=== PATIENT | male | born 1960 | race Hispanic/Latino ===

== ENCOUNTER 2017-01-03 15:44 | Emergency (ER) | payer MEDICAID, OTHER ==
--- NOTE | 2017-01-03 15:49 | ED PDOC ---
Arrival/HPI - General Time Seen by Provider: 01/03/17 15:47 Historian: Patient - History of Present Illness Narrative History of Present Illness (Text): 01/03/17 15:49 This 56 yo male with pmh right inguinal hernia, colitis presents to this ED c/o epigastric pain x 2 weeks. Patient stated symptoms has worsen last night. He noted "mucus" with tinge blood. Patient denies vomiting, sob, cp, rah, recent travel, sick contact, fever, or dizziness. Time/Duration: Other (see hpi) Context: Home Past Medical History - Provider Review Nursing Documentation Reviewed: Yes - Infectious Disease Hx of Infectious Diseases: None - Tetanus Immunization Tetanus Immunization: Unknown - Cardiac Hx Cardiac Disorders: No - Pulmonary Hx Respiratory Disorders: Yes Hx Asthma: Yes - Neurological Hx Neurological Disorder: No - HEENT Hx HEENT Disorder: No - Renal Hx Renal Disorder: No - Endocrine/Metabolic Hx Endocrine Disorders: No - Hematological/Oncological Hx Blood Disorders: No - Integumentary Hx Dermatological Disorder: No - Musculoskeletal/Rheumatological Hx Musculoskeletal Disorders: No - Gastrointestinal Hx Gastrointestinal Disorders: Yes Hx Colitis: Yes - Genitourinary/Gynecological Hx Genitourinary Disorders: No - Psychiatric Hx Psychophysiologic Disorder: Yes Hx Anxiety: Yes Hx Substance Use: No - Anesthesia Hx Anesthesia: No - Suicidal Assessment Feels Threatened In Home Enviroment: No Family/Social History - Physician Review Nursing Documentation Reviewed: Yes Family/Social History: Other (non-contributory) Smoking Status: Never Smoked Hx Alcohol Use: No Hx Substance Use: No Hx Substance Use Treatment: No Allergies/Home Meds Allergies/Adverse Reactions: Allergies acetaminophen [From Tylenol-Codeine #3] Allergy (Verified 01/03/17 15:57) NAUSEA aspirin Allergy (Verified 01/03/17 15:57) WHEEZING codeine [From Tylenol-Codeine #3] Allergy (Verified 01/03/17 15:57) NAUSEA Home Medications: Home Meds Medication Instructions Recorded Confirmed No Known Home Med 01/03/17 01/03/17 Review of Systems - Review of Systems Constitutional: Normal. absent: Fatigue, Weight Change, Fevers Eyes: Normal ENT: Normal Respiratory: Normal Cardiovascular: Normal Gastrointestinal: Abdominal Pain, Nausea. absent: Constipation, Diarrhea, Vomiting Genitourinary Male: Normal Musculoskeletal: Normal. absent: Back Pain, Neck Pain, Joint Swelling Skin: Normal. absent: Rash Neurological: Normal. absent: Headache, Dizziness, Focal Weakness, Gait Changes , Speech Changes, Facial Droop, Disequilibrium, Seizure Endocrine: Normal Hemo/Lymphatic: Normal Psychiatric: Normal Physical Exam Vital Signs Temp Pulse Resp BP Pulse Ox 01/03/17 20:56 98.0 F 78 16 126/81 99 01/03/17 16:09 98.6 F 75 18 123/69 97 Temperature: Afebrile Blood Pressure: Normal Pulse: Regular Respiratory Rate: Normal Appearance: Positive for: Well-Appearing, Non-Toxic, Comfortable Pain Distress: None Mental Status: Positive for: Alert and Oriented X 3 - Systems Exam Head: Present: Atraumatic, Normocephalic Pupils: Present: PERRL Extroacular Muscles: Present: EOMI Conjunctiva: Present: Normal Mouth: Present: Moist Mucous Membranes Neck: Present: Normal Range of Motion Respiratory/Chest: Present: Clear to Auscultation, Good Air Exchange. No: Respiratory Distress, Accessory Muscle Use, Wheezes, Rhonchi Cardiovascular: Present: Regular Rate and Rhythm, Normal S1, S2. No: Murmurs Abdomen: Present: Normal Bowel Sounds. No: Tenderness, Distention, Peritoneal Signs, Rebound, Guarding Back: Present: Normal Inspection. No: CVA Tenderness Upper Extremity: Present: Normal Inspection, Normal ROM, NORMAL PULSES, Neurovascularly Intact, Capillary Refill < 2s. No: Cyanosis, Edema Lower Extremity: Present: Normal Inspection, NORMAL PULSES, Normal ROM, Neurovascularly Intact, Capillary Refill < 2 s. No: Edema Neurological: Present: GCS=15, CN II-XII Intact, Speech Normal Skin: Present: Warm, Dry, Normal Color. No: Rashes Psychiatric: Present: Alert, Oriented x 3, Normal Insight, Normal Concentration Medical Decision Making ED Course and Treatment: 01/03/17 20:52 Leaving Against Medical Advice (AMA): This patient is choosing to leave against medical advice. The EP has personally explained to the pt that choosing to do so may result in permanent bodily harm or . The EP discussed at great length that without further evaluation and monitoring there may be unforeseen circumstances and/or deterioration causing permanent bodily harm or as a result of their choice. The pt verbalized these risks back to the physician in laymans terms. The pt is alert, oriented, and shows the mental capacity to make clear decisions regarding the pts health care at this time. The pt continues to wish to leave against medical advice. In light of the pts decision to leave AMA, follow-up has been recommended and the pt is aware of the importance of following up as instructed. The pt has been advised that they should return to the ED immediately if they change their mind at any time, or if their condition begins to change or worsen in any way. PATIENT REFUSED ANTIBIOTIC, OR ANY OTHER MEDICATION. BECAUSE HE BELIEVES IN HOLISTIC MEDICATION. Patient is aware that WBC is elevated, which may suggested an infection and antibiotic must be started immediately. He continues to refused ABX. He stated he will return to emergency if symptoms persist or worsen in 1-2 days. Patient did not want to wait for ct scan report 01/03/17 21:30 [facility] called stating patient has an acute Appendicitis. I called his home phone number multiple times but his phone is not accepting phone calls at this time. Re-evaluation Time: 20:52 Reassessment Condition: Re-examined, Improving,but remains with symptoms - Lab Interpretations Lab Results: 01/03/17 16:34 01/03/17 16:34 Lab Results 01/03/17 16:34: Sodium 142, Potassium 4.5, Chloride 104, Carbon Dioxide 26, Anion Gap 17, BUN 20, Creatinine 0.9, Est GFR ( Amer) > 60, Est GFR (Non- Af Amer) > 60, Random Glucose 91, Calcium 9.2, Total Bilirubin 1.0, AST 37, ALT 34, Alkaline Phosphatase 70, Total Protein 7.5, Albumin 4.3, Globulin 3.2, Albumin/Globulin Ratio 1.3, Lipase 46 01/03/17 16:34: PT 11.0, INR 1.02, APTT 27.2 01/03/17 16:34: WBC 15.3 H, RBC 5.25, Hgb 16.5, Hct 45.9, MCV 87.4, MCH 31.4, MCHC 35.9, RDW 12.1, Plt Count 186, MPV 9.7, Gran % 86.4 H, Lymph % (Auto) 8.5 L , [place] % (Auto) 4.7, Eos % (Auto) 0.3 L, Baso % (Auto) 0.1, Gran # 13.25 H, Lymph # 1.3, [place] # 0.7 H, Eos # 0.0, Baso # 0.02 - RAD Interpretation Radiology Orders: 01/03/17 16:20 CHEST PORTABLE [RAD] Stat 01/03/17 16:27 ABD PELVIS PO & IV CONTRAST [CT] Stat - Medication Orders Current Medication Orders: Discontinued Medications Famotidine (Pepcid) 20 mg IVP STAT STA Stop: 01/03/17 16:16 Last Admin: 01/03/17 16:45 Dose: 20 mg Sodium Chloride (Sodium Chloride 0.9%) 1,000 mls @ 1,000 mls/hr IV .Q1H STA Stop: 01/03/17 17:14 Last Admin: 01/03/17 16:45 Dose: 1,000 mls/hr Iohexol (Omnipaque 240 (50 Ml)) Confirm Administered Dose 50 ml .ROUTE .STK-MED ONE Stop: 01/03/17 17:15 Iohexol (Omnipaque 350 100 Ml) Confirm Administered Dose 350 mg .ROUTE .STK-MED ONE Stop: 01/03/17 19:01 Ondansetron HCl (Zofran Inj) 4 mg IVP STAT STA Stop: 01/03/17 16:18 Last Admin: 01/03/17 16:45 Dose: 4 mg Disposition/Present on Arrival - Present on Arrival Any Indicators Present on Arrival: No History of DVT/PE: No History of Uncontrolled Diabetes: No Urinary Catheter: No History Surgical Site Infection Following: None - Disposition Have Diagnosis and Disposition been Completed?: Yes Diagnosis: Abdominal pain Disposition: AGAINST MEDICAL ADVICE Disposition Time: 20:53 Condition: UNKNOWN Referrals: PCP,NO [Primary Care Provider] - Follow up with primary Forms: [employer] (Setswana)
[2017-01-03 15:57] VITALS: BMI 24.5
[2017-01-03] MEDS ORDERED: Sodium Chloride 0.9% 1,000 ML IV STA (16:15)
[2017-01-03 16:49] LABS: BASO # 0.02 K/mm3 (0.0-2.0); BASO % 0.1 % (0.0-3.0); EOS % 0.3 % (1.5-5.0); GRAN # 13.25 (1.4-6.5); GRAN % 86.4 % (50.0-68.0); HEMATOCRIT 45.9 % (42.0-52.0); LYMPH # 1.3 (1.2-3.4); LYMPH % 8.5 % (22.0-35.0); MEAN CELL VOLUME 87.4 fl (80.0-105.0); MEAN CORPUSCULAR HEMOGLOBIN 31.4 pg (25.0-35.0); MEAN CORPUSCULAR HGB CONC 35.9 g/dl (31.0-37.0); MEAN PLATELET VOLUME 9.7 fl (7.0-11.0); MONO # 0.7 (0.1-0.6); MONO % 4.7 % (1.0-6.0); RED CELL DISTRIBUTION WIDTH 12.1 % (11.5-14.5); WHITE BLOOD COUNT 15.3 10^3/ul (4.5-11.0)
[2017-01-03 17:01] LABS: INR 1.02 (0.93-1.08); PARTIAL THROMBOPLASTIN TIME 27.2 Seconds (23.7-30.8)
[2017-01-03 17:02] LABS: ALB/GLOB RATIO 1.3 (1.1-1.8); ALKALINE PHOSPHATASE 70 U/L (38-126); ALT/SGPT 34 U/L (7-56); AST/SGOT 37 U/L (17-59); BLOOD UREA NITROGEN 20 mg/dL (7-21); CALCIUM 9.2 mg/dL (8.4-10.5); CARBON DIOXIDE 26 mmol/L (21-33); CHLORIDE 104 mmol/L (98-107); GFR AFRICAN-AMERICAN > 60; GLUCOSE,RANDOM 91 mg/dL (70-110); LIPASE 46 U/L (23-300); POTASSIUM 4.5 mmol/L (3.6-5.0); SODIUM 142 mmol/L (132-148); TOTAL PROTEIN 7.5 g/dL (5.8-8.3)
--- NOTE | 2017-01-03 17:13 | RAD ---
HISTORY: epigastric pain r/o free air . Technique: Single view portable semi erect @ 16:35. COMPARISON: 02/03/2015. FINDINGS: LUNGS: No active pulmonary disease. PLEURA: No significant pleural effusion identified, no pneumothorax apparent. CARDIOVASCULAR: Normal. OSSEOUS STRUCTURES: No significant abnormalities. VISUALIZED UPPER ABDOMEN: Normal. OTHER FINDINGS: None. IMPRESSION: No active disease. No significant interval change compared to the prior examination(s). Concordant results with the preliminary interpretation rendered by the emergency department physician procedure.
[2017-01-03] MEDS ORDERED: Iohexol 240 (50 ml) ONE (17:14)
[2017-01-03] MEDS ORDERED: Iohexol 350 MG/100 ML VIAL ONE (19:00)
[2017-01-03 20:57] VITALS: BP 126/81; PULSE 78; RESP 16; TEMP 98; O2SAT 99
--- NOTE | 2017-01-03 21:07 | CT ---
EXAM: CT Abdomen and Pelvis With Intravenous Contrast CLINICAL HISTORY: 56 years old, male; Pain; Abdominal pain; Epigastric; Additional info: Epigastric pain TECHNIQUE: Axial computed tomography images of the abdomen and pelvis with intravenous contrast. All CT scans at this facility use one or more dose reduction techniques, viz.: automated exposure control; ma/kV adjustment per patient size (including targeted exams where dose is matched to indication; i.e. head); or iterative reconstruction technique. Coronal and sagittal reformatted images were created and reviewed. CONTRAST: 93 mL of omni 350 administered intravenously. COMPARISON: No relevant prior studies available. FINDINGS: Lower thorax: Few pulmonary nodules, up to 0.7 cm. ABDOMEN: Liver: Too small to characterize lesion. Gallbladder and bile ducts: No calcified stones. No ductal dilation. Pancreas: No ductal dilation. No mass. Spleen: No splenomegaly. Adrenals: No mass. Kidneys and ureters: RIGHT renal cyst. Few too small to characterize lesions within RIGHT kidney. No hydronephrosis. Stomach and bowel: Mild mural thickening of rectum/distal sigmoid colon with submucosal fat deposition. Increase in perirectal fat. Mild mural thickening of base of cecum. No obstruction. Appendix: Enlarged appendix, measuring up to 1.0 cm in diameter. Mild stranding about appendix. PELVIS: Bladder: Unremarkable. Reproductive: Enlarged prostate gland. ABDOMEN and PELVIS: Intraperitoneal space: No significant fluid collection. No free air. Bones/joints: No acute fracture. Soft tissues: Unremarkable. Vasculature: Unremarkable. No aneurysm. Lymph nodes: Several subcentimeter short axis lymph nodes about RIGHT colon. IMPRESSION: 1. Findings compatible with acute appendicitis. 2. Thickening of base of cecum compatible with acute focal colitis. 3. Thickening of rectum/distal sigmoid colon with fat deposition compatible with chronic colitis. 4. Pulmonary nodules. For low-risk patients recommend follow-up chest CT at 3-6 months. If unchanged consider an additional follow-up CT at 18-24 months. For high-risk patients (smoking history or other known risk factors) initial follow-up chest CT at 3-6 months and if unchanged, 18-24 months. 5. Incidental/non-acute findings are described above.
[2017-01-03 22:40] LABS: PH,URINE 8.5 (4.7-8.0); URINE APPEARANCE CLEAR (CLEAR); URINE BILIRUBIN NEGATIVE (NEGATIVE); URINE BLOOD NEGATIVE (NEGATIVE); URINE COLOR YELLOW (YELLOW); URINE GLUCOSE (UA) NEGATIVE (NEGATIVE); URINE KETONE >=80 mg/dL (NEGATIVE); URINE LEUKOCYTE ESTERASE NEGATIVE Leu/uL (NEGATIVE); URINE PROTEIN TRACE mg/dL (<30 mg/dL); URINE UROBILINOGEN 0.2 E.U./dL (<1 E.U./dL)
[2017-01-03 22:49] LABS: URINE BACTERIA FEW (NEG); URINE EPITHELIAL CELLS 0 - 2 /hpf (0-5); URINE WBC 0 - 2 /hpf (0-6)
--- NOTE | 2017-01-04 16:31 | CARD ---
APPROVED REPORT EKG Measurement Heart [id number] <Conclusion> Normal sinus rhythm Normal ECG
== END 2017-01-03 20:57 | disposition left against medical advice (07) ==
LOC: ED 15:44
DX: R10.13 Epigastric pain (principal)
CPT/HCPCS: 71010; 74177; 80053; 81001; 83690; 85025; 85610; 85730; 93005; 96374; 96375; 99285; J2405; J7040; Q9966; Q9967

== ENCOUNTER 2017-01-04 01:51 | Inpatient (IN) | payer OTHER ==
[2017-01-04 01:53] VITALS: BMI 24.5
--- NOTE | 2017-01-04 02:01 | ED PDOC ---
Arrival/HPI - General Historian: Patient - History of Present Illness Time/Duration: Other (see hpi) Quality: Aching Context: Home - General Time Seen by Provider: 01/04/17 01:57 - History of Present Illness Narrative History of Present Illness (Text): 01/04/17 01:58 This 56 yo male with pmh right inguinal hernia, colitis, presents to this ED c/ o worsening of abdominal pain. Patient stated he was seen in this ED early today, but he needed to take care his mother, so he signed AMA, refused ABX, and left ED. Abdominal pain has worsen, so he returned to ED. Denies sob, cp, fever, or urinary symptoms. (Eh Moon) Past Medical History - Provider Review Nursing Documentation Reviewed: Yes - Infectious Disease Hx of Infectious Diseases: None - Tetanus Immunization Tetanus Immunization: Unknown - Cardiac Hx Cardiac Disorders: No - Pulmonary Hx Respiratory Disorders: Yes Hx Asthma: Yes - Neurological Hx Neurological Disorder: No - HEENT Hx HEENT Disorder: No - Renal Hx Renal Disorder: No - Endocrine/Metabolic Hx Endocrine Disorders: No - Hematological/Oncological Hx Blood Disorders: No - Integumentary Hx Dermatological Disorder: No - Musculoskeletal/Rheumatological Hx Musculoskeletal Disorders: No - Gastrointestinal Hx Gastrointestinal Disorders: Yes Hx Colitis: Yes - Genitourinary/Gynecological Hx Genitourinary Disorders: No - Psychiatric Hx Psychophysiologic Disorder: Yes Hx Anxiety: Yes Hx Substance Use: No - Anesthesia Hx Anesthesia: No - Suicidal Assessment Feels Threatened In Home Enviroment: No Family/Social History - Physician Review Nursing Documentation Reviewed: Yes Family/Social History: Other (non-contributory) Smoking Status: Never Smoked Hx Alcohol Use: No Hx Substance Use: No Hx Substance Use Treatment: No Allergies/Home Meds Allergies/Adverse Reactions: Allergies acetaminophen [From Tylenol-Codeine #3] Allergy (Verified 01/03/17 15:57) NAUSEA aspirin Allergy (Verified 01/03/17 15:57) WHEEZING codeine [From Tylenol-Codeine #3] Allergy (Verified 01/03/17 15:57) NAUSEA Home Medications: Home Meds Medication Instructions Recorded Confirmed No Known Home Med 01/03/17 01/04/17 Review of Systems - Review of Systems Constitutional: Normal. absent: Fatigue, Weight Change, Fevers Eyes: Normal ENT: Normal Respiratory: Normal. absent: SOB, Cough, Sputum, Wheezing Cardiovascular: Normal. absent: Chest Pain, Palpitations Gastrointestinal: Abdominal Pain, Nausea. absent: Diarrhea, Vomiting Genitourinary Male: Normal Musculoskeletal: Normal. absent: Back Pain Skin: Normal. absent: Rash Neurological: Normal Endocrine: Normal Hemo/Lymphatic: Normal Psychiatric: Normal Physical Exam Temperature: Afebrile Blood Pressure: Normal Pulse: Regular Respiratory Rate: Normal Appearance: Positive for: Well-Appearing, Non-Toxic, Comfortable Pain Distress: None Mental Status: Positive for: Alert and Oriented X 3 - Systems Exam Head: Present: Atraumatic, Normocephalic Pupils: Present: PERRL Extroacular Muscles: Present: EOMI Conjunctiva: Present: Normal Mouth: Present: Moist Mucous Membranes Neck: Present: Normal Range of Motion Respiratory/Chest: Present: Clear to Auscultation, Good Air Exchange. No: Respiratory Distress, Accessory Muscle Use Cardiovascular: Present: Regular Rate and Rhythm, Normal S1, S2. No: Murmurs Abdomen: Present: Tenderness, Normal Bowel Sounds, Rebound, Guarding. No: Distention, Peritoneal Signs, Rovsing's Sign Present, Feeding Tubes, Ostomy Tubes Back: Present: Normal Inspection. No: CVA Tenderness Upper Extremity: Present: Normal Inspection. No: Cyanosis, Edema Lower Extremity: Present: Normal Inspection. No: Edema Neurological: Present: GCS=15, CN II-XII Intact, Speech Normal Skin: Present: Warm, Dry, Normal Color. No: Rashes Psychiatric: Present: Alert, Oriented x 3, Normal Insight, Normal Concentration Vital Signs Temp Pulse Resp BP Pulse Ox 01/04/17 02:09 99.7 F H 82 16 116/73 95 Medical Decision Making Re-evaluation Time: 02:18 Reassessment Condition: Re-examined, Improving,but remains with symptoms - Lab Interpretations I have reviewed the lab results: Yes Interpretation: Abnormal lab values ED Course and Treatment: 01/04/17 02:49 I was available for consultation during PA evaluation. The chart was reviewed by me, and I agree with disposition. The documented history was done by the physician quality manager. The documented procedures were done by the physician quality manager. (Mauricio Howe) 01/04/17 02:[address] Judge regarding CT scan result which demonstrates Appy. She agrees with admission under her service (Eh Moon) - RAD Interpretation Narrative RAD Interpretations (Text): 01/04/17 02:19 Formerly [facility] Division of Radiology [address] [address] Tel. no. Patient Name: JOSEPH LINDER Pt. Address: [address] [place] [address]. Rec #: [id number] [place] [address]: Eh Moon PA-C Pt Order Location: ED : 1960 Male Age: 56 Order #: [id number] Reason for exam: epigastric pain CT Scan ABD PELVIS PO IV CONTRAST Exam Date: 01/03/17 This imaging exam was performed at [facility] ADDENDUM Addendum created by Zoltan Urena MD on 01/03/2017 9:19:35 PM EDT THIS REPORT CONTAINS FINDINGS THAT MAY BE CRITICAL TO PATIENT CARE. The findings were verbally communicated via telephone conference with physician technical administrative assistant Eh Moon PA-C at 9:18 PM EDT on 01/03/2017. The findings were acknowledged and understood. Vasculature: Mild varices within upper abdomen. No aneurysm. Initial report created on 01/03/2017 9:06:56 PM EDT EXAM: CT Abdomen and Pelvis With Intravenous Contrast CLINICAL HISTORY: 56 years old, male; Pain; Abdominal pain; Epigastric; Additional info: Epigastric pain TECHNIQUE: Axial computed tomography images of the abdomen and pelvis with intravenous contrast. All CT scans at this facility use one or more dose reduction techniques, viz.: automated exposure control; ma/kV adjustment per patient size (including targeted exams where dose is matched to indication; i.e. head); or iterative reconstruction technique. Coronal and sagittal reformatted images were created and reviewed. CONTRAST: 93 mL of omni 350 administered intravenously. COMPARISON: No relevant prior studies available. FINDINGS: Lower thorax: Few pulmonary nodules, up to 0.7 cm. ABDOMEN: Liver: Too small to characterize lesion. Gallbladder and bile ducts: No calcified stones. No ductal dilation. Pancreas: No ductal dilation. No mass. Spleen: No splenomegaly. Adrenals: No mass. Kidneys and ureters: RIGHT renal cyst. Few too small to characterize lesions within RIGHT kidney. No hydronephrosis. Stomach and bowel: Mild mural thickening of rectum/distal sigmoid colon with submucosal fat deposition. Increase in perirectal fat. Mild mural thickening of base of cecum. No obstruction. Appendix: Enlarged appendix, measuring up to 1.0 cm in diameter. Mild stranding about appendix. PELVIS: Bladder: Unremarkable. Reproductive: Enlarged prostate gland. ABDOMEN and PELVIS: Intraperitoneal space: No significant fluid collection. No free air. Bones/joints: No acute fracture. Soft tissues: Unremarkable. Vasculature: Unremarkable. No aneurysm. Lymph nodes: Several subcentimeter short axis lymph nodes about RIGHT colon. IMPRESSION: 1. Findings compatible with acute appendicitis. 2. Thickening of base of cecum compatible with acute focal colitis. 3. Thickening of rectum/distal sigmoid colon with fat deposition compatible with chronic colitis. 4. Pulmonary nodules. For low-risk patients recommend follow-up chest CT at 3-6 months. If unchanged consider an additional follow-up CT at 18-24 months. For high-risk patients (smoking history or other known risk factors) initial follow-up chest CT at 3-6 months and if unchanged, 18-24 months. 5. Incidental/non-acute findings are described above. Addendum Dictated By: Zoltan Urena MD Addendum Dictated Date Time:01/03/17 Addendum Signed by:Zoltan Urena MD Addendum signed Date Time: 01/03/172118 Addendum Transcribed By: ISH Addendum Transcribed Date Time: 01/03/17 [id number] EXAM: CT Abdomen and Pelvis With Intravenous Contrast CLINICAL HISTORY: 56 years old, male; Pain; Abdominal pain; Epigastric; Additional info: Epigastric pain TECHNIQUE: Axial computed tomography images of the abdomen and pelvis with intravenous contrast. All CT scans at this facility use one or more dose reduction techniques, viz.: automated exposure control; ma/kV adjustment per patient size (including targeted exams where dose is matched to indication; i.e. head); or iterative reconstruction technique. Coronal and sagittal reformatted images were created and reviewed. CONTRAST: 93 mL of omni 350 administered intravenously. COMPARISON: No relevant prior studies available. FINDINGS: Lower thorax: Few pulmonary nodules, up to 0.7 cm. ABDOMEN: Liver: Too small to characterize lesion. Gallbladder and bile ducts: No calcified stones. No ductal dilation. Pancreas: No ductal dilation. No mass. Spleen: No splenomegaly. Adrenals: No mass. Kidneys and ureters: RIGHT renal cyst. Few too small to characterize lesions within RIGHT kidney. No hydronephrosis. Stomach and bowel: Mild mural thickening of rectum/distal sigmoid colon with submucosal fat deposition. Increase in perirectal fat. Mild mural thickening of base of cecum. No obstruction. Appendix: Enlarged appendix, measuring up to 1.0 cm in diameter. Mild stranding about appendix. PELVIS: Bladder: Unremarkable. Reproductive: Enlarged prostate gland. ABDOMEN and PELVIS: Intraperitoneal space: No significant fluid collection. No free air. Bones/joints: No acute fracture. Soft tissues: Unremarkable. Vasculature: Unremarkable. No aneurysm. Lymph nodes: Several subcentimeter short axis lymph nodes about RIGHT colon. IMPRESSION: 1. Findings compatible with acute appendicitis. 2. Thickening of base of cecum compatible with acute focal colitis. 3. Thickening of rectum/distal sigmoid colon with fat deposition compatible with chronic colitis. 4. Pulmonary nodules. For low-risk patients recommend follow-up chest CT at 3-6 months. If unchanged consider an additional follow-up CT at 18-24 months. For high-risk patients (smoking history or other known risk factors) initial follow-up chest CT at 3-6 months and if unchanged, 18-24 months. 5. Incidental/non-acute findings are described above. Dictated By: Zoltan Urena MD Dictated Date/Time: 01/03/172105 Signed By: Zoltan Urena MD Date Signed: 2105 Transcribed By: ISH Transcribe Date/Time : 01/03/172105 (Eh Moon) Radiology Orders: 01/04/17 02:08 CHEST PORTABLE [RAD] Stat - Medication Orders Current Medication Orders: Discontinued Medications Desflurane (Suprane) Confirm Administered Dose 240 ml .ROUTE .STK-MED ONE Stop: 01/04/17 11:15 Dexamethasone (Decadron Inj) Confirm Administered Dose 10 mg .ROUTE .STK-MED ONE Stop: 01/04/17 10:53 Fentanyl (Fentanyl) Confirm Administered Dose 100 mcg .ROUTE .STK-MED ONE Stop: 01/04/17 10:52 Fentanyl (Fentanyl) Confirm Administered Dose 100 mcg .ROUTE .STK-MED ONE Stop: 01/04/17 11:06 Glycopyrrolate (Robinul) Confirm Administered Dose 0.6 mg .ROUTE .STK-MED ONE Stop: 01/04/17 11:07 Hydromorphone HCl (Dilaudid) 0.5 mg IVP Q6H PRN PRN Reason: Pain, moderate (4-7) Hydromorphone HCl (Dilaudid) 1 mg IVP Q15M PRN PRN Reason: Pain, moderate (4-7) Stop: 01/04/17 15:11 Sodium Chloride (Sodium Chloride 0.9%) 1,000 mls @ 100 mls/hr IV .Q10H THEODORE Sodium Chloride (Sodium Chloride 0.9%) 1,000 mls @ 999 mls/hr IV .Q1H1M STA Stop: 01/04/17 03:17 Last Admin: 01/04/17 02:47 Dose: 999 mls/hr eMAR Start Stop Document 01/04/17 02:47 SC (Rec: 01/04/17 02:48 SC [id number]) Intravenous Solution Start Date 01/04/17 Start Time 02:48 End Date 01/04/17 End time 03:48 Total Infusion Time 60 Sodium Chloride (Sodium Chloride 0.9%) 1,000 mls @ 150 mls/hr IV .Q6H40M THEODORE Last Admin: 01/05/17 01:16 Dose: 150 mls/hr eMAR Start Stop Document 01/05/17 01:16 BN (Rec: 01/05/17 01:16 BN [id number]) Intravenous Solution Start Date 01/05/17 Start Time 01:16 Piperacillin Sod/Tazobactam Sod (Zosyn 3.375 In Ns 100ml) 100 mls @ 200 mls/hr IVPB Q6 THEODORE PRN Reason: Protocol Stop: 01/04/17 12:29 Last Admin: 01/04/17 15:24 Dose: Lactated Ringer's (Lactated Ringer's) 1,000 mls @ 75 mls/hr IV .[id number] THEODORE Stop: 01/04/17 12:12 Last Admin: 01/04/17 15:16 Dose: Metoclopramide HCl (Reglan) Confirm Administered Dose 10 mg .ROUTE .STK-MED ONE Stop: 01/04/17 10:56 Neostigmine Methylsulfate (Neostigmine Methylsulfate) Confirm Administered Dose 6 mg IV .STK-MED ONE Stop: 01/04/17 11:07 Ondansetron HCl (Zofran Inj) 4 mg IVP STAT STA Stop: 01/04/17 02:18 Last Admin: 01/04/17 02:48 Dose: 4 mg IVP Administration Document 01/04/17 02:48 SC (Rec: 01/04/17 02:48 SC [id number]) Charges for Administration # of IVP Administrations 1 Ondansetron HCl (Zofran Inj) 4 mg IVP Q4H PRN PRN Reason: Nausea/Vomiting Ondansetron HCl (Zofran Inj) Confirm Administered Dose 4 mg .ROUTE .STK-MED ONE Stop: 01/04/17 11:47 Ondansetron HCl (Zofran Inj) 4 mg IVP .STK-MED ONE Stop: 01/04/17 11:51 Last Admin: 01/04/17 11:50 Dose: 4 mg Ondansetron HCl (Zofran Inj) 4 mg IVP ONCE ONE Stop: 01/04/17 11:58 Last Admin: 01/04/17 15:23 Dose: Pantoprazole Sodium (Protonix Inj) 40 mg IVP DAILY THEODORE Last Admin: 01/05/17 10:22 Dose: 40 mg IVP Administration Document 01/05/17 10:22 (Rec: 01/05/17 10:22 [id number]) Charges for Administration # of IVP Administrations 1 Propofol (Diprivan) Confirm Administered Dose 200 mg .ROUTE .STK-MED ONE Stop: 01/04/17 09:59 Propofol (Diprivan) Confirm Administered Dose 200 mg .ROUTE .STK-MED ONE Stop: 01/04/17 10:30 Rocuronium [place] (Zemuron) Confirm Administered Dose 50 mg .ROUTE .STK-MED ONE Stop: 01/04/17 10:44 Succinylcholine Chloride (Quelicin) Confirm Administered Dose 200 mg IV .STK- MED ONE Stop: 01/04/17 09:59 Disposition/Present on Arrival - Present on Arrival Any Indicators Present on Arrival: No History of DVT/PE: No History of Uncontrolled Diabetes: No Urinary Catheter: No History Surgical Site Infection Following: None - Disposition Have Diagnosis and Disposition been Completed?: Yes Disposition Time: 02:19 Patient Plan: Admission - Disposition Diagnosis: Appendicitis Disposition: HOSPITALIZED Condition: STABLE
[2017-01-04] MEDS ORDERED: Sodium Chloride 0.9% 1,000 ML IV SCH (02:15)
[2017-01-04] MEDS ORDERED: Sodium Chloride 0.9% 1,000 ML IV STA (02:17)
--- NOTE | 2017-01-04 02:31 | CP.PCM.CON ---
History of Present Illness - History of Present Illness History of Present Illness: SURGERY CONSULT NOTE FOR DR. CARMONA Past Patient History - Infectious Disease Hx of Infectious Diseases: None - Tetanus Immunizations Tetanus Immunization: Unknown - Past Social History Smoking Status: Never Smoked - CARDIAC Hx Cardiac Disorders: No - PULMONARY Hx Respiratory Disorders: Yes Hx Asthma: Yes - NEUROLOGICAL Hx Neurological Disorder: No - HEENT Hx HEENT Problems: No - RENAL Hx Chronic Kidney Disease: No - ENDOCRINE/METABOLIC Hx Endocrine Disorders: No - HEMATOLOGICAL/ONCOLOGICAL Hx Blood Disorders: No - INTEGUMENTARY Hx Dermatological Problems: No - MUSCULOSKELETAL/RHEUMATOLOGICAL Hx Musculoskeletal Disorders: No - GASTROINTESTINAL Hx Gastrointestinal Disorders: Yes Hx Colitis: Yes - GENITOURINARY/GYNECOLOGICAL Hx Genitourinary Disorders: No - PSYCHIATRIC Hx Psychophysiologic Disorder: Yes Hx Anxiety: Yes Hx Substance Use: No - SURGICAL HISTORY Hx Surgeries: No - ANESTHESIA Hx Anesthesia: No Meds Allergies/Adverse Reactions: Allergies Allergy/AdvReac Type Severity Reaction Status Date / Time acetaminophen Allergy NAUSEA Verified 01/03/17 15:57 [From Tylenol-Codeine #3] aspirin Allergy WHEEZING Verified 01/03/17 15:57 codeine Allergy NAUSEA Verified 01/03/17 15:57 [From Tylenol-Codeine #3] - Medications Medications: Current Medications Sodium Chloride (Sodium Chloride 0.9%) 1,000 mls @ 999 mls/hr IV .Q1H1M STA Stop: 01/04/17 03:17 Ondansetron HCl (Zofran Inj) 4 mg IVP STAT STA Stop: 01/04/17 02:18 Results - Vital Signs Recent Vital Signs: Last Vital Signs Temp 99.7 F H 01/04/17 02:09 Pulse 82 01/04/17 02:09 Resp 16 01/04/17 02:09 BP 116/73 01/04/17 02:09 Pulse Ox 95 01/04/17 02:09
--- NOTE | 2017-01-04 03:24 | CP.PCM.HP ---
History of Present Illness - History of Present Illness History of Present Illness: HISTORY AND PHYSICAL FOR DR. CARMONA 56M presents to [facility] [place] with abdominal pain which has been ongoing for one day. He states he has never had this severity of pain before. Pain started in the periumbilical region and and now moved with max tenderness in the right lower quadrant. It was associated with nausea and vomiting once. He admits to subjective fevers and chills. Patient states he does not feel like eating because he feels as if he would not be able to tolerate PO diet. Patient left ER AMA last night and came back to ED at 1AM because of increase in pain. PMH: Colitis, right inguinal hernia PSH: I&D Rectal abscess? Social: denies tobacco, alcohol, illicit drug abuse Allergies: Codeine (nausea), states he does not have allergy to acetaminophen without codeine Present on Admission - Present on Admission Any Indicators Present on Admission: No Past Patient History - Infectious Disease Hx of Infectious Diseases: None - Tetanus Immunizations Tetanus Immunization: Unknown - Past Social History Smoking Status: Never Smoked - CARDIAC Hx Cardiac Disorders: No - PULMONARY Hx Respiratory Disorders: Yes Hx Asthma: Yes - NEUROLOGICAL Hx Neurological Disorder: No - HEENT Hx HEENT Problems: No - RENAL Hx Chronic Kidney Disease: No - ENDOCRINE/METABOLIC Hx Endocrine Disorders: No - HEMATOLOGICAL/ONCOLOGICAL Hx Blood Disorders: No - INTEGUMENTARY Hx Dermatological Problems: No - MUSCULOSKELETAL/RHEUMATOLOGICAL Hx Musculoskeletal Disorders: No - GASTROINTESTINAL Hx Gastrointestinal Disorders: Yes Hx Colitis: Yes - GENITOURINARY/GYNECOLOGICAL Hx Genitourinary Disorders: No - PSYCHIATRIC Hx Psychophysiologic Disorder: Yes Hx Anxiety: Yes Hx Substance Use: No - SURGICAL HISTORY Hx Surgeries: No - ANESTHESIA Hx Anesthesia: No Meds Allergies/Adverse Reactions: Allergies Allergy/AdvReac Type Severity Reaction Status Date / Time acetaminophen Allergy NAUSEA Verified 01/03/17 15:57 [From Tylenol-Codeine #3] aspirin Allergy WHEEZING Verified 01/03/17 15:57 codeine Allergy NAUSEA Verified 01/03/17 15:57 [From Tylenol-Codeine #3] Physical Exam - Constitutional Appears: Non-toxic, No Acute Distress - Head Exam Head Exam: ATRAUMATIC - Eye Exam Eye Exam: EOMI, PERRL - ENT Exam ENT Exam: Mucous Membranes Dry - Respiratory Exam Respiratory Exam: Clear to Auscultation Bilateral, NORMAL BREATHING PATTERN - Cardiovascular Exam Cardiovascular Exam: REGULAR RHYTHM, +S1, +S2 - GI/Abdominal Exam GI & Abdominal Exam: Firm, Soft, Tenderness (moderate tenderness, max in the RLQ , positive rovsing sign). absent: Distended, Guarding, Rebound, Rigid - Extremities Exam Extremities exam: Negative for: pedal edema, tenderness - Neurological Exam Neurological exam: Alert, Oriented x3 - Psychiatric Exam Psychiatric exam: Normal Affect, Normal Mood - Skin Skin Exam: Dry, Intact, Normal Color, Warm Results - Vital Signs Recent Vital Signs: Last Vital Signs Temp 99.7 F H 01/04/17 02:09 Pulse 82 01/04/17 02:09 Resp 16 01/04/17 02:09 BP 116/73 01/04/17 02:09 Pulse Ox 95 01/04/17 02:09 - Labs Labs: Laboratory Results - last 24 hr 01/04/17 02:30 BBK History Checked No verified bt Assessment & Plan - Assessment and Plan (Free Text) Assessment: 56M with acute appendicitis complicated by focal colitis of the cecum CT: acute appendicitis 1cm, thickening of the cecum wall Plan: - NPO, IVF, Pain control - anti-emetic, antibiotics - AM labs - DVT/GI ppx - re-asses patient in AM - Booked for OR in AM Further recs discuss with Dr Alfie Yao, PGY2
[2017-01-04 04:41] VITALS: RESP 18
[2017-01-04] MEDS: Sodium Chloride 0.9% 1,000 ML IV SCH ×2 (04:46→15:23)
[2017-01-04] MEDS: Piperacillin/Tazobact 3.375 gm 100 ML IVPB SCH ×2 (05:11→15:24)
[2017-01-04] MEDS ORDERED: HYDROmorphone 0.5 mg/0.5 ml ISec IVP PRN (06:37)
[2017-01-04 07:40] LABS: BASO # 0.03 K/mm3 (0.0-2.0); BASO % 0.2 % (0.0-3.0); EOS % 0.1 % (1.5-5.0); GRAN # 15.09 (1.4-6.5); GRAN % 88.4 % (50.0-68.0); HEMATOCRIT 42.4 % (42.0-52.0); LYMPH % 5.9 % (22.0-35.0); MEAN CORPUSCULAR HEMOGLOBIN 30.3 pg (25.0-35.0); MEAN CORPUSCULAR HGB CONC 34.4 g/dl (31.0-37.0); MEAN PLATELET VOLUME 9.5 fl (7.0-11.0); MONO # 0.9 (0.1-0.6); MONO % 5.4 % (1.0-6.0); RED CELL DISTRIBUTION WIDTH 12.3 % (11.5-14.5); WHITE BLOOD COUNT 17.1 10^3/ul (4.5-11.0)
[2017-01-04 08:12] LABS: ALKALINE PHOSPHATASE 49 U/L (38-126); ALT/SGPT 29 U/L (7-56); AST/SGOT 18 U/L (17-59); BLOOD UREA NITROGEN 13 mg/dL (7-21); CALCIUM 8.3 mg/dL (8.4-10.5); CARBON DIOXIDE 28 mmol/L (21-33); CHLORIDE 104 mmol/L (95-110); GFR AFRICAN-AMERICAN > 60; GLUCOSE,RANDOM 118 mg/dL (70-110); POTASSIUM 4.7 mmol/L (3.6-5.0); SODIUM 138 mmol/L (132-148)
[2017-01-04 08:37] LABS: ALB/GLOB RATIO 1.1 (1.1-1.8); BILIRUBIN,TOTAL 1.2 mg/dL (0.2-1.3); TOTAL PROTEIN 6.7 g/dL (5.8-8.3)
--- NOTE | 2017-01-04 09:42 | RAD ---
HISTORY: admission COMPARISON: 01/03/2017 FINDINGS: LUNGS: No active pulmonary disease. PLEURA: No significant pleural effusion identified, no pneumothorax apparent. CARDIOVASCULAR: Normal. OSSEOUS STRUCTURES: No significant abnormalities. VISUALIZED UPPER ABDOMEN: Normal. OTHER FINDINGS: None. IMPRESSION: No active disease.
[2017-01-04] MEDS ORDERED: Propofol 10 mg/ml Inj (20 ML) ONE ×2 (09:58→10:29)
[2017-01-04] MEDS ORDERED: Succinylcholine 200 mg/10 ml Inj IV ONE (09:58)
[2017-01-04] MEDS ORDERED: HYDROmorphone 1 mg/ml ISec IVP PRN (10:10)
[2017-01-04] MEDS ORDERED: Lactated Ringer's 1,000 ML IV SCH (10:11)
[2017-01-04] MEDS ORDERED: Rocuronium 10 mg/ml (5 ml) ONE (10:43)
[2017-01-04] MEDS ORDERED: Neostigmine Methylsulfate 3mg/3ml Syringe IV ONE (11:06)
[2017-01-04] MEDS ORDERED: Desflurane Inhalation Anesthetic Liq (240 ml) ONE (11:14)
--- NOTE | 2017-01-04 11:45 | PCM.SURG1 ---
Surgeon's Initial Post Op Note - Surgeon's Notes Surgeon: Dr. Judge Tester Food Products: Dr. Bueno PGY-4, Dr. Nova PGY-2 Type of Anesthesia: General Endo Pre-Operative Diagnosis: acute appendicitis Operative Findings: see operative report Post-Operative Diagnosis: acute appendicitis Operation Performed: laparoscopic appendectomy Specimen/Specimens Removed: appendix Estimated Blood Loss: EBL {In ML}: 10 Blood Products Given: N/A Drains Used: No Drains Post-Op Condition: Good Date of Surgery/Procedure: 01/04/17 Time of Surgery/Procedure: 11:44
[2017-01-05] MEDS: Sodium Chloride 0.9% 1,000 ML IV SCH (01:16)
[2017-01-05 07:27] LABS: ALKALINE PHOSPHATASE 42 U/L (38-126); ALT/SGPT 28 U/L (7-56); AST/SGOT 15 U/L (17-59); BILIRUBIN,TOTAL 0.4 mg/dL (0.2-1.3); BLOOD UREA NITROGEN 13 mg/dL (7-21); CALCIUM 8.1 mg/dL (8.4-10.5); CARBON DIOXIDE 26 mmol/L (21-33); CHLORIDE 107 mmol/L (98-107); GFR AFRICAN-AMERICAN > 60; GLUCOSE,RANDOM 105 mg/dL (70-110); SODIUM 140 mmol/L (132-148); TOTAL PROTEIN 5.8 g/dL (5.8-8.3)
[2017-01-05 08:12] LABS: BASO # 0.01 K/mm3 (0.0-2.0); BASO % 0.1 % (0.0-3.0); EOS % 0.4 % (1.5-5.0); GRAN # 8.81 (1.4-6.5); LYMPH # 0.8 (1.2-3.4); LYMPH % 7.7 % (22.0-35.0); MEAN CELL VOLUME 88.8 fl (80.0-105.0); MEAN CORPUSCULAR HEMOGLOBIN 30.4 pg (25.0-35.0); MEAN CORPUSCULAR HGB CONC 34.3 g/dl (31.0-37.0); MONO # 0.7 (0.1-0.6); MONO % 6.8 % (1.0-6.0); RED CELL DISTRIBUTION WIDTH 12.3 % (11.5-14.5); WHITE BLOOD COUNT 10.4 10^3/ul (4.5-11.0)
[2017-01-05 09:21] VITALS: BP 109/64; PULSE 60; TEMP 98.1; O2SAT 98
--- NOTE | 2017-01-05 09:35 | CP.PCM.DIS ---
Provider - Provider Date of Admission: 01/04/17 02:11 Attending physician: Christopher Judge MD Time Spent in preparation of Discharge (in minutes): 35 Hospital Course - Lab Results Lab Results: Most Recent Lab Values WBC 10.4 10^3/ul (4.5-11.0) D 01/05/17 07:07 RBC 4.73 10^6/uL (3.5-6.1) 01/05/17 07:07 Hgb 14.4 g/dL (14.0-18.0) 01/05/17 07:07 Hct 42.0 % (42.0-52.0) 01/05/17 07:07 MCV 88.8 fl (80.0-105.0) 01/05/17 07:07 MCH 30.4 pg (25.0-35.0) 01/05/17 07:07 MCHC 34.3 g/dl (31.0-37.0) 01/05/17 07:07 RDW 12.3 % (11.5-14.5) 01/05/17 07:07 Plt Count 164 10^3/uL (120.0-450.0) 01/05/17 07:07 MPV 10.0 fl (7.0-11.0) 01/05/17 07:07 Gran % 85.0 % (50.0-68.0) H 01/05/17 07:07 Lymph % (Auto) 7.7 % (22.0-35.0) L 01/05/17 07:07 Grady % (Auto) 6.8 % (1.0-6.0) H 01/05/17 07:07 Eos % (Auto) 0.4 % (1.5-5.0) L 01/05/17 07:07 Baso % (Auto) 0.1 % (0.0-3.0) 01/05/17 07:07 Gran # 8.81 (1.4-6.5) H 01/05/17 07:07 Lymph # 0.8 (1.2-3.4) L 01/05/17 07:07 Grady # 0.7 (0.1-0.6) H 01/05/17 07:07 Eos # 0.0 (0.0-0.7) 01/05/17 07:07 Baso # 0.01 K/mm3 (0.0-2.0) 01/05/17 07:07 Sodium 140 mmol/L (132-148) 01/05/17 07:07 Potassium 4.0 mmol/L (3.6-5.0) 01/05/17 07:07 Chloride 107 mmol/L (98-107) 01/05/17 07:07 Carbon Dioxide 26 mmol/L (21-33) 01/05/17 07:07 Anion Gap 11 (10-20) 01/05/17 07:07 BUN 13 mg/dL (7-21) 01/05/17 07:07 Creatinine 0.8 mg/dL (0.5-1.4) 01/05/17 07:07 Est GFR ( Amer) > 60 01/05/17 07:07 Est GFR (Non-Af Amer) > 60 01/05/17 07:07 Random Glucose 105 mg/dL (70-110) 01/05/17 07:07 Calcium 8.1 mg/dL (8.4-10.5) L 01/05/17 07:07 Total Bilirubin 0.4 mg/dL (0.2-1.3) 01/05/17 07:07 AST 15 U/L (17-59) L 01/05/17 07:07 ALT 28 U/L (7-56) 01/05/17 07:07 Alkaline Phosphatase 42 U/L (38-126) 01/05/17 07:07 Total Protein 5.8 g/dL (5.8-8.3) 01/05/17 07:07 Albumin 2.9 g/dL (3.0-4.8) L 01/05/17 07:07 Globulin 2.8 gm/dL 01/05/17 07:07 Albumin/Globulin Ratio 1.0 (1.1-1.8) L 01/05/17 07:07 Blood Type O POSITIVE 01/04/17 02:30 Blood Type Confirm O POSITIVE 01/04/17 03:05 Antibody Screen Negative 01/04/17 02:30 BBK History Checked No verified bt 01/04/17 02:30 - Hospital Course Hospital Course: Discharge Summary for Dr. Judge 56M presents to [facility] with abdominal pain for one day. Pain started in the periumbilical region and and now moved with max tenderness in the right lower quadrant. Patient had one episode of nausea and vomiting, admitted to subjective fever and chills. Patient admits to decreased diet. Patient left ER AMA 01/03 and came back to ED at 1AM because of increase in pain. Patient had a laparoscopic appendectomy 01/04, tolerated procedure well. NAEON. Patient did not ask for pain medications. 01/05: Patient tolerated diet well and is set for discharge to follow up with Dr. Judge in 1 week for post operative check. Patient was instructed to not do heavy lifting until okayed by Dr. Judge. Patient was instructed to keep dressing dry for 24 hours. Patient can shower, but cannot bath or submerge wound in water. - Date & Time of H&P Date of H&P: 01/05/17 Time of H&P: 09:35 Discharge Exam - Head Exam Head Exam: ATRAUMATIC Discharge Plan - Follow Up Plan Condition: STABLE Disposition: HOME/ ROUTINE Additional Instructions: follow up with Dr. Judge in one week no heavy lifting until okayed by Dr. Judge follow up with primary care provider in [address] Judge's office if fever >101F, vomiting, nausea occurs Patient can shower. keep dressing dry for 24 hours. do not submerge wound in a bath. take ibuprofen/tylenol for pain as needed with proper dosage on bottle Patient can return to work as tolerated with pain. Do not strain to press on brake pedal.
--- NOTE | 2017-01-05 22:53 | OP ---
DATE OF OPERATION: 01/04/2017 SURGEON: Dr. Judge. TWISTING FRAME OPERATOR: Dr. Carter and Dr. Nova. ANESTHESIA: General, Dr. Thomas. PREOPERATIVE DIAGNOSIS: Acute appendicitis. POSTOPERATIVE DIAGNOSIS: Acute appendicitis. PROCEDURE: Laparoscopic appendectomy. DESCRIPTION OF PROCEDURE: With the patient in the supine position under adequate general anesthesia. The abdomen was prepped and draped in the usual sterile manner. Veress needle puncture was performed at the umbilicus with insufflation to 15 cm of water pressure of CO2 and a 10 mm laparoscopic trocar was inserted via an infraumbilical incision. Under direct vision 5 and 12 mm trocars were inserted in the left lower quadrant. The appendix was identified. It was noted to be acutely inflamed and small amount of purulent exudate was noted on some of the adjacent fatty tissues. The appendix was the freed from surrounding structures and elevated and the mesoappendix was dissected and divided with an endo STELLA stapler. The appendix itself was then divided close to the cecum also using an endo STELLA stapler and hemoclips were used to reinforce the area of the appendiceal artery. The appendix was placed in a specimen retrieval bag and removed via the 12 mm port site. The right lower quadrant and pelvis were suctioned. The pneumoperitoneum was released and the trocars were removed. The umbilical and 12 mm port site were closed with [id number] fascial suture of 0-Vicryl. All incisions were closed with 4-0 Monocryl subcuticular sutures and Steri-Strips. Dry sterile dressings were applied. The patient tolerated the procedure well and transferred to the recovery room in stable condition. ESTIMATED BLOOD LOSS FOR THE PROCEDURE: 10 mL. Christopher Judge MD
== END 2017-01-05 12:35 | disposition home or self-care (01) | DRG 883 ==
LOC: ED 01:51 → ERH 02:11 → 5RSO 04:31
PROVIDERS: ADMIT Specialist; ATTEND Specialist
PROC: 0DTJ4ZZ Resection of Appendix, Percutaneous Endoscopic Approach (ICD-10-PCS; principal; 2017-01-05)
DX: K35.80 Unspecified acute appendicitis (principal); J45.909 Unspecified asthma, uncomplicated; K52.9 Noninfective gastroenteritis and colitis, unspecified

== ENCOUNTER 2018-08-12 11:40 | Emergency (ER) | payer MEDICAID, OTHER | END 2018-08-12 16:05 | disposition left against medical advice (07) | LOC: ED 11:40 ==